=== PATIENT | female | born 1985 | race Hispanic/Latino ===

== ENCOUNTER 2020-01-31 16:31 | Inpatient (IN) | payer OTHER ==
[~2020-01-31 16:31] MED LIST: Iopamidol-370 76% 500 ML 1 ML ONE
[2020-01-31] MEDS ORDERED: Morphine 4 MG/ML VIAL ONE ×2 (19:07→21:52)
[2020-01-31] MEDS ORDERED: Ondansetron PF 4 MG/2 ML Vial ONE (19:07)
[2020-01-31 19:22] LABS: #Basophils 0.1 thou/uL (0.0-0.2); #Eosinphils 0.1 thou/uL (0.0-0.7); #Lymphocytes 1.3 thou/uL (1.20-3.40); #Monocytes 0.5 thou/uL (0.11-0.59); #Neutrophils 11.5 thou/uL (1.40-6.50); %Basophils 0.5 % (0.0-1.0); %Eosinophils 0.4 % (0.0-10.0); %Monocytes 3.9 % (0.0-10.0); %Neutrophils 85.2 % (42.0-75.0); Hemoglobin 12.4 g/dL (12.0-16.0); Mean Corpuscular HGB CONC 33.2 g/dL (32.0-36.0); Mean Corpuscular Hemoglobin 28.5 pg (27.0-31.0); Mean Corpuscular Volume 85.7 fL (78.0-98.0); Mean Platelet Volume 8.9 fL (7.4-10.4); Platelet Count 276 thou/uL (130-400); RBC Distribution Width 14.2 % (11.5-14.5); Red Blood Cell (RBC) Count 4.37 mill/uL (4.20-5.40); White Blood Cell (WBC) Count 13.5 thou/uL (4.8-10.8)
[2020-01-31 19:44] LABS: ALT (SGPT) 25 U/L (8-55); AST (SGOT) 23 U/L (5-34); Albumin 4.4 g/dL (3.5-5.0); Alkaline Phosphatase 87 U/L (40-110); Anion Gap 11 mmol/L (10-20); BUN (Urea Nitrogen) 6 mg/dL (7.0-18.7); Bilirubin, Total 0.5 mg/dL (0.2-1.2); Calc. Creatinine Clearance 0 mL/min (70-130); Calcium 8.8 mg/dL (7.8-10.44); Carbon Dioxide 27 mmol/L (22-29); Chloride 103 mmol/L (98-107); Estimated GFR-MDRD 84; Globulin 3.5 g/dL (2.4-3.5); Glucose 107 mg/dL (70-105); Lipase 27 U/L (8-78); Potassium 3.6 mmol/L (3.5-5.1); Protein, Total 7.9 g/dL (6.0-8.3); Sodium 137 mmol/L (136-145)
[2020-01-31 19:55] LABS: Bilirubin Negative (Negative); Blood, Urine Negative (Negative); Clarity Clear (Clear); Glucose, Urine (Dipstick) Normal (Negative); Ketone, Urine Negative (Negative); Leukocyte Negative Leu/uL (Negative); Nitrite Negative (Negative); Protein, Urine (Dipstick) Negative (Neg-Trace); Specific Gravity, Urine 1.008 (1.002-1.036); Urobilinogen Normal mg/dL (Less than 2)
[2020-01-31 19:56] LABS: Pregnancy Test - Urine (BHCG) Negative (Negative); Pregu Control Background? CLEAR/WHITE (CLR/WHITE); Pregu Control Bar Appear? YES (CONTROL BAR); Specific Gravity 1.008 (1.002-1.036)
[2020-01-31] MEDS ORDERED: Ketorolac Tromethamine 30 MG/ML VIAL ONE (21:20)
--- NOTE | 2020-01-31 21:29 | CT ---
CT ABDOMEN AND PELVIS PERFORMED WITH CONTRAST ENHANCEMENT: 01/31/20 HISTORY: Diarrhea and bodyaches x3 days. The lung bases are clear. The liver, spleen, pancreas and gallbladder regions all appear unremarkable. Right and left adrenal glands and right and left kidneys are normal. There is no significant periaort ic or mesenteric adenopathy. Moderate amount of stool present within the right colon. No obstruction. CT OF PELVIS PERFORMED WITH CONTRAST ENHANCEMENT: The appendix is somewhat difficult to visualize but appears normal. The sigmoid colon is not distend ed. Deep within the pelvis adjacent to this nondistended colon is an extraluminal air collection and there is inflammatory change in this region. Minimal diverticular disease is seen in this area but th is is felt to represent changes related to diverticulitis and a contained perforation. There is no la rge drainable fluid collections seen. IMPRESSION: Diverticulitis of the very distal sigmoid colon near the rectosigmoid junction. Small extraluminal co llection of air is seen associated with what appear to be diverticulitis type changes with inflammato ry change in this area and a few scattered diverticula. POS: JULIETA
[2020-01-31] MEDS ORDERED: Piperacillin/Tazobactam 4.5 GM VIAL ONE (21:53)
[2020-02-01 00:25] VITALS: BMI 25.0
[2020-02-01] MEDS ORDERED: Morphine 2 MG/ML VIAL SLOW IVP PRN ×2 (00:29→10:15)
[2020-02-01] MEDS ORDERED: Morphine 4 MG/ML VIAL SLOW IVP PRN ×2 (00:29→10:15)
[2020-02-01] MEDS ORDERED: Ondansetron PF 4 MG/2 ML Vial IVP PRN (00:30)
[2020-02-01] MEDS ORDERED: Ondansetron ODT 4 MG TAB SL PRN (00:30)
[2020-02-01] MEDS ORDERED: Piperacillin/Tazobactam 4.5 GM in Sodium Chloride 0.9% 100 ML IVPB SCH (04:00)
[2020-02-01] MEDS: Sodium Chloride 0.9% 1,000 ML IV SCH ×2 (04:37→10:43)
[2020-02-01] MEDS ORDERED: HYDROcodone/Acetaminophen 5/325 mg Tablet PO PRN (10:15)
[2020-02-01] MEDS ORDERED: Acetaminophen 325 MG TAB PO PRN ×2 (10:15)
[2020-02-01] MEDS ORDERED: traMADol HCl 50 MG TAB PO PRN (10:15)
[2020-02-01] MEDS: D5 1/2 NS w/20 mEq KCL 1,000 ML IV SCH ×3 (11:11→21:52)
[2020-02-01] MEDS: Piperacillin/Tazobactam 3.375 GM in Sodium Chloride 0.9% 100 ML IVPB SCH ×2 (11:16→18:38)
[2020-02-01 12:51] LABS: SARS-CoV-2 MS2 Positive; SARS-CoV-2 N Gene Negative; SARS-CoV-2 S Gene Negative; SARS-CoV-2 by NAA Not Detected (NotDetected); SARS-CoV-2 orf1ab Negative
[2020-02-01] MEDS: Ondansetron PF 4 MG/2 ML Vial IVP PRN (15:47)
[2020-02-01] MEDS: HYDROcodone/Acetaminophen 5/325 mg Tablet PO PRN ×2 (16:15→21:55)
[2020-02-01] MEDS: traMADol HCl 50 MG TAB PO PRN (18:41)
[2020-02-01] MEDS ORDERED: FLU VACC QS2020-21(6MOS UP)/PF 60 MCG/0.5 ML SYRINGE IM ONE (21:00)
--- NOTE | 2020-02-02 00:13 | HP ---
CHIEF COMPLAINT: Abdominal pain. HISTORY OF PRESENT ILLNESS: Ms. Feliz is a 34-year-old previously healthy woman who presented to the emergency room with 3-day history of sharp constant lower abdominal pain and diarrhea. She also reports urinary frequency, but no dysuria or hematuria. She has not had any previous similar episodes. She cannot identify any exacerbating or alleviating factors. She has not had any fevers or chills and denies any unusual ingestions or ill contacts. She underwent evaluation in the emergency room including a CT of the abdomen and pelvis, which revealed inflammation of the sigmoid colon near the rectosigmoid junction with a small focus of extraluminal gas near this area consistent with a contained perforation. There were some adjacent diverticula, so this was presumed due to diverticulitis. No associated mass was noted. She has no family history of GI malignancy and has never had a colonoscopy. PAST MEDICAL HISTORY: None. PAST SURGICAL HISTORY: . FAMILY HISTORY: Diabetes. ALLERGIES: NO KNOWN DRUG ALLERGIES. MEDICATIONS: None. REVIEW OF SYSTEMS: Ten system review of systems is negative except per HPI. PHYSICAL EXAMINATION: VITAL SIGNS: Afebrile with normal vital signs. GENERAL: Reveals a healthy-appearing young woman, in no acute distress. She is not flushed or toxic in appearance. She is not jaundiced or icteric. HEENT: Unremarkable. Pupils are equal and extraocular movements are intact. NECK: Supple without lymphadenopathy or thyroid nodules. HEART: Regular in its rate and rhythm without murmurs, rubs, or gallops. LUNGS: Clear to auscultation bilaterally. ABDOMEN: Soft and nondistended. She is mildly tender to palpation diffusely, but mostly in the bilateral lower quadrants. No focal point of greatest tenderness. No rigidity, rebound, or guarding. No palpable masses or hernias. EXTREMITIES: Warm and well perfused without edema. NEUROLOGIC: No focal deficits. PSYCHIATRIC: Alert, oriented, and appropriate with normal affect. LABORATORY DATA: White count is mildly elevated at 13.5. Electrolytes are unremarkable and LFTs are normal as is lipase. UA is unremarkable and urine test was negative. COVID test is negative. CT images were reviewed and I agree with the written report. ASSESSMENT: Diverticulitis with contained perforation. No indication for surgical intervention at this time and no drainable abscess. She was admitted for pain control on IV antibiotics and we will continue with this. If her condition worsens, then repeat CT will be performed. If she improves on antibiotics, then we will consider transitioning to oral antibiotics to complete a course of treatment. She is on clear fluids at this point, and we will await improvement of her clinical course before deciding whether to advance her diet. Job ID: [id number] MTDD
[2020-02-02] MEDS: Piperacillin/Tazobactam 3.375 GM in Sodium Chloride 0.9% 100 ML IVPB SCH ×4 (00:31→17:29)
[2020-02-02 05:29] LABS: #Eosinphils 0.1 thou/uL (0.0-0.7); #Lymphocytes 1.5 thou/uL (1.20-3.40); #Monocytes 0.4 thou/uL (0.11-0.59); #Neutrophils 5.6 thou/uL (1.40-6.50); %Basophils 0.6 % (0.0-1.0); %Eosinophils 1.1 % (0.0-10.0); %Lymphocytes 19.1 % (21.0-51.0); %Monocytes 5.2 % (0.0-10.0); Hemoglobin 9.4 g/dL (12.0-16.0); Mean Corpuscular HGB CONC 33.3 g/dL (32.0-36.0); Mean Corpuscular Hemoglobin 28.7 pg (27.0-31.0); Mean Corpuscular Volume 86.2 fL (78.0-98.0); Mean Platelet Volume 8.8 fL (7.4-10.4); Platelet Count 214 thou/uL (130-400); RBC Distribution Width 13.8 % (11.5-14.5); Red Blood Cell (RBC) Count 3.28 mill/uL (4.20-5.40); White Blood Cell (WBC) Count 7.6 thou/uL (4.8-10.8)
[2020-02-02 05:42] LABS: Anion Gap 8 mmol/L (10-20); BUN (Urea Nitrogen) 4 mg/dL (7.0-18.7); Calc. Creatinine Clearance 121 mL/min (70-130); Carbon Dioxide 25 mmol/L (22-29); Chloride 107 mmol/L (98-107); Estimated GFR-MDRD 88; Glucose 97 mg/dL (70-105); Potassium 3.8 mmol/L (3.5-5.1); Sodium 136 mmol/L (136-145)
[2020-02-02] MEDS: HYDROcodone/Acetaminophen 5/325 mg Tablet PO PRN ×2 (08:21→12:21)
--- NOTE | 2020-02-02 09:59 | PDOC.GSPN ---
Surgery Progress Note: Subj - Subjective Narrative: Ms. Feliz is feeling much better today. Her pain has improved. She has no nausea. She has not had any bowel movements but she is passing gas and is hungry. T-max 99.9. Vital signs normal. White count is normal today. Abdomen is soft and nondistended. She still has moderate tenderness in the left lower quadrant but less than yesterday and the rest of her abdomen is only minimally tender. Assessment/plan: Diverticulitis, symptomatically improving on IV antibiotics. I am going to advance her diet to GI soft. If she tolerates this and her symptoms continue to improve we will likely transition her to oral antibiotics tomorrow and discharge her home. Surgery Progress Note: Obj - Vital signs Vital signs: Vital Signs - Most Recent Temp Pulse Resp BP Pulse Ox 98.4 F 67 16 113/73 98 02/02/20 07:34 02/02/20 07:34 02/02/20 07:34 02/02/20 07:34 02/02/20 08:20 Surgery Progress Note: Results - Labs Result Diagrams: 02/02/20 04:46 02/02/20 04:46 Lab results: Laboratory Results - last 12 hr 02/02/20 02/02/20 04:46 04:46 WBC 7.6 RBC 3.28 L Hgb 9.4 L Hct 28.3 L MCV 86.2 MCH 28.7 MCHC 33.3 RDW 13.8 Plt Count 214 MPV 8.8 Neutrophils % 74.0 Lymphocytes % 19.1 L Monocytes % 5.2 Eosinophils % 1.1 Basophils % 0.6 Neutrophils # 5.6 Lymphocytes # 1.5 Monocytes # 0.4 Eosinophils # 0.1 Basophils # 0.0 Sodium 136 Potassium 3.8 Chloride 107 Carbon Dioxide 25 Anion Gap 8 L BUN 4 L Creatinine 0.76 Estimated GFR (MDRD) 88 Glucose 97 Calcium 8.0
[2020-02-02] MEDS ORDERED: Saccharomyces boulardii 250 MG CAP PO SCH (10:20)
[2020-02-02] MEDS: D5 1/2 NS w/20 mEq KCL 1,000 ML IV SCH (12:26)
[2020-02-02] MEDS: Ondansetron PF 4 MG/2 ML Vial IVP PRN (17:29)
[2020-02-02] MEDS: Ondansetron ODT 4 MG TAB PO PRN (20:38)
[2020-02-02] MEDS: traMADol HCl 50 MG TAB PO PRN (20:38)
[2020-02-03] MEDS: Piperacillin/Tazobactam 3.375 GM in Sodium Chloride 0.9% 100 ML IVPB SCH ×3 (00:02→13:12)
[2020-02-03] MEDS: D5 1/2 NS w/20 mEq KCL 1,000 ML IV SCH ×3 (00:03→13:39)
[2020-02-03] MEDS: Ondansetron PF 4 MG/2 ML Vial IVP PRN ×2 (00:06→05:43)
[2020-02-03] MEDS: traMADol HCl 50 MG TAB PO PRN ×2 (05:43→16:26)
[2020-02-03 07:31] VITALS: TEMP 97.8
[2020-02-03] MEDS ORDERED: Saccharomyces boulardii 250 MG CAP PO SCH (09:00)
[2020-02-03] MEDS ORDERED: Acetaminophen 500 MG TAB PO PRN (12:48)
[2020-02-03] MEDS ORDERED: Ibuprofen 600 MG TAB PO PRN (12:48)
[2020-02-03 16:04] VITALS: BP 116/73
[2020-02-03] MEDS: Ondansetron ODT 4 MG TAB PO PRN (16:26)
--- NOTE | 2020-02-03 20:16 | DIS ---
DATE OF ADMISSION: 01/31/2020 DATE OF DISCHARGE: 02/03/2020 DISCHARGE DIAGNOSIS: Diverticulitis. HISTORY: A 34-year-old female presenting with history and exam suggestive of diverticulitis, confirmed by CAT scan, admitted for bowel rest, intravenous antibiotics, improving her pain, now being discharged home with Augmentin 500 b.i.d., low-fiber diet for 2 to 3 weeks, transition to high-fiber after that. MiraLAX daily. Take [id number] Tylenol and Motrin for pain. Follow up with Dr. Joseph in 2 to 3 weeks. Job ID: [id number]
--- NOTE | 2020-02-03 20:25 | DIS ---
DATE OF ADMISSION: 01/31/2020 DATE OF DISCHARGE: 02/03/2020 DISCHARGE DIAGNOSIS: Sigmoid diverticulitis. DISCHARGE MEDICATIONS: Augmentin 500 b.i.d. for seven days. FOLLOWUP: Follow up with Dr. Joseph in a week or two. HISTORY: A 34-year-old female, 5 feet 7, 160 pounds, 25 BMI. 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 The patient was treated nonoperatively with bowel rest, IV antibiotics, improved and now discharged home with a low-fiber diet for 2 to 3 weeks, transition to high-fiber after that. She is given Augmentin 500 b.i.d. seven days. She is to follow up with Dr. Joseph in 2 to 3 weeks. Follow up with primary care physician, Dr. Washburn. If she has increased pain, she will report to the hospital. There is no family history of colon cancer. Job ID: [id number]
[2020-02-03] MEDS ORDERED: Amoxicillin/Potassium Clav 500 MG TAB PO SCH (21:00)
[2020-02-04] MEDS ORDERED: Polyethylene Glycol 3350 17 GM Packet PO SCH (09:00)
== END 2020-02-03 16:35 | disposition home or self-care (01) | DRG 392 ==
LOC: ERS 16:31 → SURG B 21:52 → UNDOADMIN 02-01 00:20 → SURG B 02-01 00:20
PROVIDERS: ADMIT Surgery; ATTEND Surgery
DX: K57.20 Diverticulitis of large intestine with perforation and abscess without bleeding (principal); Z20.828 Contact with and (suspected) exposure to other viral communicable diseases
CPT/HCPCS: 36415; 74177; 80048; 80053; 81003; 81025; 83690; 85025; 87635; 96365; 96375; 96376; J1885; J2270; J2405; J2543; J3480; J3490; Q0162; Q9967; U0003